=== PATIENT | female | born 1950 | race Caucasian/White ===

== ENCOUNTER 2024-01-09 15:07 | Outpatient (RCR) | payer OTHER, SELFPAY | END 2024-01-09 23:59 | disposition home or self-care (01) | LOC: RPT 15:07 | PROVIDERS: ATTENDING PHYSICIAN Internal Medicine | DX: S76.011D Strain of muscle, fascia and tendon of right hip, subsequent encounter (principal); M16.11 Unilateral primary osteoarthritis, right hip; R26.89 Other abnormalities of gait and mobility; Z73.6 Limitation of activities due to disability | CPT/HCPCS: 97010; 97110; 97162 ==

== ENCOUNTER 2024-02-05 13:04 | Outpatient (RCR) | payer OTHER, SELFPAY | END 2024-02-05 23:59 | disposition home or self-care (01) | LOC: RPT 13:04 | PROVIDERS: ATTENDING PHYSICIAN Internal Medicine | DX: S76.011D Strain of muscle, fascia and tendon of right hip, subsequent encounter (principal); M16.11 Unilateral primary osteoarthritis, right hip; R26.89 Other abnormalities of gait and mobility; Z73.6 Limitation of activities due to disability; X58.XXXD Exposure to other specified factors, subsequent encounter | CPT/HCPCS: 97010; 97110 ==

== ENCOUNTER → 2024-02-06 12:58 | Outpatient (REF) | payer OTHER, SELFPAY | LOC: RCS 12:58 | PROVIDERS: ATTENDING PHYSICIAN Internal Medicine Cardiovascular Disease; FAMILY PHYSICIAN Internal Medicine | DX: I77.810 Thoracic aortic ectasia (principal); I10 Essential (primary) hypertension; E78.2 Mixed hyperlipidemia | CPT/HCPCS: 93306 ==

== ENCOUNTER 2024-02-25 11:04 | Outpatient (RCR) | payer OTHER, SELFPAY | END 2024-02-25 15:07 | disposition home or self-care (01) | LOC: RPT 11:04 | PROVIDERS: ATTENDING PHYSICIAN Internal Medicine | DX: S76.011D Strain of muscle, fascia and tendon of right hip, subsequent encounter (principal); M16.11 Unilateral primary osteoarthritis, right hip; R26.89 Other abnormalities of gait and mobility; Z73.6 Limitation of activities due to disability | CPT/HCPCS: 97010; 97110 ==

== ENCOUNTER → 2024-03-28 10:56 | Outpatient (REF) | payer OTHER, SELFPAY | LOC: HWRAD 10:56 | PROVIDERS: ATTENDING PHYSICIAN Internal Medicine Cardiovascular Disease; FAMILY PHYSICIAN Internal Medicine | DX: I10 Essential (primary) hypertension (principal); I77.810 Thoracic aortic ectasia; R09.89 Other specified symptoms and signs involving the circulatory and respiratory systems; R59.0 Localized enlarged lymph nodes | CPT/HCPCS: 93880 ==

== ENCOUNTER → 2024-04-23 11:04 | Outpatient (REF) | payer OTHER, SELFPAY | LOC: DHCBC/DCA 11:04 | PROVIDERS: ATTENDING PHYSICIAN Internal Medicine Cardiovascular Disease; FAMILY PHYSICIAN Internal Medicine | DX: I70.0 Atherosclerosis of aorta (principal); E78.00 Pure hypercholesterolemia, unspecified; R07.9 Chest pain, unspecified; M54.9 Dorsalgia, unspecified | CPT/HCPCS: 78452; 93017; A9500 ==

== ENCOUNTER 2024-08-13 14:20 | Outpatient (RCR) | payer OTHER, SELFPAY ==
[2024-08-13 14:25] VITALS: BP 138/77
[2024-08-13] MEDS: RECLAST 100 IV (14:38)
== END 2024-08-14 08:49 | disposition home or self-care (01) ==
LOC: OID 14:20
PROVIDERS: ATTENDING PHYSICIAN Internal Medicine Endocrinology, Diabetes & Metabolism; FAMILY PHYSICIAN Internal Medicine
DX: M81.0 Age-related osteoporosis without current pathological fracture (principal)
CPT/HCPCS: 96365; J3489

== ENCOUNTER → 2024-10-21 14:50 | Outpatient (REF) | payer OTHER, SELFPAY | LOC: WDC 14:50 | PROVIDERS: ATTENDING PHYSICIAN Obstetrics & Gynecology Gynecology; FAMILY PHYSICIAN Internal Medicine | DX: Z12.31 Encounter for screening mammogram for malignant neoplasm of breast (principal) | CPT/HCPCS: 77063; 77067 ==

== ENCOUNTER → 2024-12-12 13:35 | Outpatient (REF) | payer OTHER, SELFPAY | LOC: HWRCS 13:35 | PROVIDERS: ATTENDING PHYSICIAN Internal Medicine Cardiovascular Disease; FAMILY PHYSICIAN Internal Medicine | DX: I10 Essential (primary) hypertension (principal); I77.810 Thoracic aortic ectasia; E78.2 Mixed hyperlipidemia; R09.89 Other specified symptoms and signs involving the circulatory and respiratory systems; R60.0 Localized edema | CPT/HCPCS: 93306 ==

== ENCOUNTER → 2025-01-14 11:46 | Outpatient (REF) | payer OTHER, SELFPAY | LOC: RAD 11:46 | PROVIDERS: ATTENDING PHYSICIAN Internal Medicine | DX: R05.3 Chronic cough (principal) | CPT/HCPCS: 71046 ==

== ENCOUNTER 2025-08-14 13:36 | Outpatient (RCR) | payer OTHER, SELFPAY ==
[2025-08-14] MEDS: RECLAST 100 IV (14:05)
[2025-08-14 14:19] VITALS: BP 117/55
[2025-08-14 15:10] VITALS: BP 165/70
== END 2025-08-17 08:27 | disposition home or self-care (01) ==
LOC: OID 13:36
PROVIDERS: ATTENDING PHYSICIAN Internal Medicine Endocrinology, Diabetes & Metabolism; FAMILY PHYSICIAN Internal Medicine
DX: M81.0 Age-related osteoporosis without current pathological fracture (principal)
CPT/HCPCS: 96365; J3489

== ENCOUNTER 2025-09-02 06:22 | Day surgery (SDC) | payer OTHER, SELFPAY | END 2025-09-02 09:35 | disposition home or self-care (01) | LOC: GI 06:22 | PROVIDERS: ATTENDING PHYSICIAN Internal Medicine; FAMILY PHYSICIAN Internal Medicine | DX: Z12.11 Encounter for screening for malignant neoplasm of colon (principal); K63.5 Polyp of colon; K57.30 Diverticulosis of large intestine without perforation or abscess without bleeding; K64.9 Unspecified hemorrhoids; Z86.0101 Personal history of adenomatous and serrated colon polyps | CPT/HCPCS: 45380; 88305 ==

== ENCOUNTER 2025-09-11 08:15 | Outpatient (RCR) | payer OTHER, SELFPAY | END 2025-09-11 23:59 | disposition home or self-care (01) | LOC: RPT 08:15 | PROVIDERS: ATTENDING PHYSICIAN Internal Medicine; FAMILY PHYSICIAN Internal Medicine | DX: K59.09 Other constipation (principal); M62.89 Other specified disorders of muscle; N39.3 Stress incontinence (female) (male); Z73.6 Limitation of activities due to disability | CPT/HCPCS: 97112; 97162; 97530 ==

== ENCOUNTER 2025-09-22 11:45 | Outpatient (RCR) | payer OTHER, SELFPAY | END 2025-09-22 23:59 | disposition home or self-care (01) | LOC: RPT 11:45 | PROVIDERS: ATTENDING PHYSICIAN Internal Medicine; FAMILY PHYSICIAN Internal Medicine | DX: K59.09 Other constipation (principal); M62.89 Other specified disorders of muscle; N39.3 Stress incontinence (female) (male); Z73.6 Limitation of activities due to disability | CPT/HCPCS: 97112; 97140; 97530 ==

== ENCOUNTER → 2025-10-20 13:07 | Outpatient (REF) | payer OTHER, SELFPAY | LOC: HWRAD 13:07 | PROVIDERS: ATTENDING PHYSICIAN Internal Medicine Endocrinology, Diabetes & Metabolism; FAMILY PHYSICIAN Internal Medicine; REFERRING PHYSICIAN Obstetrics & Gynecology Gynecology | DX: M81.0 Age-related osteoporosis without current pathological fracture (principal) | CPT/HCPCS: 77080 ==

== ENCOUNTER → 2025-10-22 12:52 | Outpatient (REF) | payer OTHER, SELFPAY | LOC: WDC 12:52 | PROVIDERS: ATTENDING PHYSICIAN Obstetrics & Gynecology Gynecology; FAMILY PHYSICIAN Internal Medicine | DX: Z12.31 Encounter for screening mammogram for malignant neoplasm of breast (principal) | CPT/HCPCS: 77063; 77067 ==

== ENCOUNTER 2025-11-09 07:41 | Outpatient (RCR) | payer OTHER, SELFPAY | END 2025-11-09 23:59 | disposition home or self-care (01) | LOC: RPT 07:41 | PROVIDERS: ATTENDING PHYSICIAN Internal Medicine; FAMILY PHYSICIAN Internal Medicine | DX: K59.09 Other constipation (principal); M62.89 Other specified disorders of muscle; N39.3 Stress incontinence (female) (male); Z73.6 Limitation of activities due to disability | CPT/HCPCS: 97110; 97112; 97530 ==